=== PATIENT | male | born 1995 | race Caucasian/White ===

== ENCOUNTER 2021-05-04 02:07 | Emergency (ER) | payer BC, SELFPAY ==
[2021-05-04] VITALS (7 sets, daily range): BP systolic 125–145; BP diastolic 75–97; PULSE 94–140; RESP 16–22; TEMP 36.7–39.3; O2SAT 96–98; BMI 39.5
--- NOTE | 2021-05-04 02:23 | XR_ITS ---
PROCEDURE INFORMATION: Exam: XR Chest Exam date and time: 05/04/2021 2:23 AM Age: 26 years old Clinical indication: Cough; Additional info: Covid symptoms TECHNIQUE: Imaging protocol: XR of the chest. Views: 2 views. COMPARISON: No relevant prior studies available. FINDINGS: Lungs: Perceived hazy opacity in the peripheral right mid lung seen on the AP image, suspicious for pneumonia. This does not have a clear correlate on the lateral view, and artifact due to underpenetration is within the differential. Pleural spaces: No pleural effusion. No pneumothorax. Heart/Mediastinum: Normal heart size. Bones/joints: Unremarkable. IMPRESSION: Hazy peripheral right midlung opacity suspicious for pneumonia. Differential would include artifact due to underpenetration.
[2021-05-04 02:44] LABS: Coronavirus 19, PCR Not Detected (NotDetected); Influenza A, PCR Not Detected (NotDetected); Influenza B, PCR Not Detected (NotDetected)
[2021-05-04 03:02] LABS: Strep Scrn Group A (Rapid) Positive (Negative)
[2021-05-04 03:57] LABS: Basophils # 0.1 K/mm3 (0-0.2); Basophils % 0.3 % (0.1-2.0); Eosinophils # 0.1 K/mm3 (0.0-0.4); Eosinophils % 0.6 % (0.1-12.0); Hematocrit 42.9 % (42.0-52.0); Hemoglobin 14.2 g/dL (14.1-18.0); Lymphocytes # 1.2 K/mm3 (0.7-4.5); Lymphocytes % 6.6 % (10-50); Mean Corpuscular HGB Conc 33.2 g/dL (31.8-35.4); Mean Corpuscular Hemoglobin 29.2 pg (27.0-31.2); Mean Platelet Volume 7.7 fl (7.4-10.4); Monocytes # 0.6 K/mm3 (0.1-1.0); Monocytes % 3.5 % (1.7-9.3); Neutrophils # 15.8 K/mm3 (1.8-7.8); Platelet Count 249 K/mm3 (142-424); Red Blood Count 4.87 M/mm3 (4.60-6.20); Red Cell Distribution Width 13.4 % (11.5-17.5); White Blood Count 17.7 K/mm3 (4.8-10.8)
[2021-05-04 03:59] LABS: MANUAL DIFFERENTIAL MANUAL DIFFERENTIAL (MANUAL DIFF)
[2021-05-04 04:11] LABS: Alanine Aminotransferase 59 U/L (12-78); Albumin Level 4.1 g/dl (3.5-5.0); Albumin/Globulin Ratio 1.4 (1.1-1.8); Alkaline Phosphatase 60 U/L (38-126); Anion Gap 11.9 mEq/L (5-15); Aspartate Amino Transferase 32 U/L (17-59); Bilirubin,Total 1.5 mg/dl (0.2-1.3); Blood Urea Nitrogen 12 mg/dl (9-20); Carbon Dioxide 24 mmol/L (22.0-30.0); Chloride 105 mmol/L (98-107); Creatinine Clearance Estimated 235 mL/min (50-200); Estimated Glomerular Filt Rate 100 ml/min (>60); GFR (African American) 122 ML/MIN (>60); Globulin 2.9 g/dL (1.3-3.2); Glucose 125 mg/dl (74-100); Potassium 3.9 mmoL/L (3.5-5.1); Sodium 137 mmol/L (136-145)
[2021-05-04 04:16] LABS: C-Reactive Protein 65.1 mg/L (0-4)
[2021-05-04 04:34] LABS: Erythrocyte Sedimentation Rate 19 mm/hr (0-15)
--- NOTE | 2021-05-04 04:39 | HMH.EDURI ---
ED Disposition Clinical Impression: Strep pharyngitis, SIRS (systemic inflammatory response syndrome) Disposition: Home, Self-Care Condition on Discharge: Good Instructions: DI for Fever (Symptom) -- Adult Additional Instructions: fluids and change tooth brush Prescriptions: Cefdinir [Omnicef 300mg Capsule] 300 mg PO BID #14 cap Transmission Status: Pending to [id number] Referrals: Adam Norwood MD [Primary Care Provider] - - Critical Care Critical Care Time: No Attestation: On 05/04/21, the high probability of a clinically significant, sudden or life threatening deterioration of the following system(s) required my full and direct attention, intervention and personal management. The time I documented below is in addition to time spent performing reported procedures but includes the following listed in this critical care notation. Medical Decision Making - Medical Records Medical records reviewed: Yes: I reviewed the patient's medical records. - Hugo Inquiry Pt receiving controlled substance: No Vital Signs: 05/04/21 02:09 05/04/21 02:40 05/04/21 03:00 Temperature 102.8 F H Temperature Source Oral Pulse Rate 117 H 111 H Pulse Rate [Right Radial] 140 H Respiratory Rate 22 22 Blood Pressure 128/83 138/75 Blood Pressure [Right Arm] 145/97 H Blood Pressure Mean 94 Blood Pressure Mean [Right Arm] 113 Blood Pressure Source [Right Arm] Automatic Cuff Blood Pressure Position [Right Arm] Sitting 02 Sat by Pulse Oximetry 97 96 96 Oxygen Delivery Method Room Air Room Air Room Air 05/04/21 03:08 05/04/21 03:30 05/04/21 04:00 Temperature 99.9 F H Temperature Source Oral Pulse Rate 105 H 106 H Pulse Rate [Right Radial] Respiratory Rate Blood Pressure 132/75 125/80 Blood Pressure [Right Arm] Blood Pressure Mean Blood Pressure Mean [Right Arm] Blood Pressure Source [Right Arm] Blood Pressure Position [Right Arm] 02 Sat by Pulse Oximetry 96 96 Oxygen Delivery Method Room Air Room Air - Lab Data Lab results reviewed: Yes: I reviewed the patient's lab results. Lab Results 05/04/21 02:40: Group A Strep Rapid Positive A 05/04/21 02:40: SARS-CoV-2 (PCR) Not detected, Influenza A Untype (PCR) Not detected, Influenza Type B (PCR) Not detected 05/04/21 03:46: WBC 17.7 H, RBC 4.87, Hgb 14.2, Hct 42.9, MCV 88.0, MCH 29.2, MCHC 33.2, RDW 13.4, Plt Count 249, MPV 7.7, Neut % (Auto) 89.0 H, Lymph % (Auto) 6.6 L, Coffey % (Auto) 3.5, Eos % (Auto) 0.6, Baso % (Auto) 0.3, Neut # (Auto) 15.8 H, Lymph # (Auto) 1.2, Coffey # (Auto) 0.6, Eos # (Auto) 0.1, Baso # (Auto) 0.1, ESR 19 H 05/04/21 03:46: Sodium 137, Potassium 3.9, Chloride 105, Carbon Dioxide 24, Anion Gap 11.9, BUN 12, Creatinine 0.90, Estimated Creat Clear 235, Estimated GFR 100, Est GFR ( Amer) 122, Glucose 125 H, Calcium 9.0, Total Bilirubin 1.5 H, AST 32, ALT 59, Alkaline Phosphatase 60, C-Reactive Protein 65.1 H, Total Protein 7.0, Albumin 4.1, Globulin 2.9, Albumin/Globulin Ratio 1.4, Procalcitonin 0.110 Result diagrams: 05/04/21 03:46 05/04/21 03:46 Orders (Tests/Meds): ED MEDICATIONS Generic Name Dose Route Start Last Admin Trade Name Freq PRN Reason Stop Dose Admin Sodium Chloride 1,000 mls @ 999 mls/hr 05/04/21 02:30 05/04/21 02:29 Sod Chlor 0.9% 1000ml Bag IV 05/04/21 03:30 999 mls/hr .Q1H1M JOB Administration Sodium Chloride 1,000 mls @ 999 mls/hr 05/04/21 04:00 05/04/21 04:00 Sod Chlor 0.9% 1000ml Bag IV 05/04/21 05:00 999 mls/hr .Q1H1M JOB Administration Ceftriaxone Sodium 1 gm/ 50 mls @ 100 mls/hr 05/04/21 04:30 05/04/21 04:26 Sodium Chloride IV 05/18/21 04:29 100 mls/hr Q24H JOB Administration Discontinued Medications Generic Name Dose Route Start Last Admin Trade Name Freq PRN Reason Stop Dose Admin Acetaminophen 1,000 mg 05/04/21 02:24 05/04/21 02:29 Acetaminophen 500mg Tab PO 05/04/21 02:25 1,000 mg ONCE ONE
[2021-05-04 04:54] LABS: Lymphocytes % 10 % (10-50); Monocytes % 1 % (2-9); Neutrophils % 88 % (42-76); Platelet Estimate Normal; RBC Morphology Normal; Total Cells Counted 100
== END 2021-05-04 04:50 | disposition home or self-care (01) ==
PROVIDERS: Emergency Provider Emergency Medicine; PCP Family Medicine
DX: J02.0 Streptococcal pharyngitis (principal); R65.10 Systemic inflammatory response syndrome (SIRS) of non-infectious origin without acute organ dysfunction
CPT/HCPCS: 71046; 80053; 84145; 85007; 85025; 85651; 86140; 87430; 96365; 96375; 99283; C9803; U0003; U0005

== ENCOUNTER → 2021-07-10 11:59 | Outpatient (CLI) | payer BC, SELFPAY | PROVIDERS: PCP Family Medicine; Visit Provider Nurse Practitioner | DX: U07.1 COVID-19 (principal) | CPT/HCPCS: C9803; U0003; U0005 ==

== ENCOUNTER → 2022-04-17 13:56 | Outpatient (CLI) | payer BC, SELFPAY ==
[2022-04-17 15:10] LABS: Basophils # 0.1 K/mm3 (0-0.2); Basophils % 1.2 % (0.1-2.0); Eosinophils # 0.1 K/mm3 (0.0-0.4); Eosinophils % 0.9 % (0.1-12.0); Hematocrit 46.7 % (42.0-52.0); Hemoglobin 15.7 g/dL (14.1-18.0); Lymphocytes # 2.8 K/mm3 (0.7-4.5); Lymphocytes % 26.7 % (10-50); Mean Corpuscular HGB Conc 33.7 g/dL (31.8-35.4); Mean Corpuscular Hemoglobin 29.1 pg (27.0-31.2); Mean Corpuscular Volume 86.3 fl (80-94); Mean Platelet Volume 7.8 fl (7.4-10.4); Monocytes # 0.5 K/mm3 (0.1-1.0); Monocytes % 4.7 % (1.7-9.3); Neutrophils # 6.9 K/mm3 (1.8-7.8); Neutrophils % 66.6 % (37.0-80.0); Platelet Count 315 K/mm3 (142-424); Red Blood Count 5.41 M/mm3 (4.60-6.20); Red Cell Distribution Width 13.2 % (11.5-17.5); White Blood Count 10.4 K/mm3 (4.8-10.8)
[2022-04-17 15:47] LABS: Anion Gap 16.4 mEq/L (5-15); Blood Urea Nitrogen 14 mg/dl (9-20); Calcium 9.5 mg/dl (8.4-10.2); Carbon Dioxide 29 mmol/L (22.0-30.0); Chloride 100 mmol/L (98-107); Estimated Glomerular Filt Rate 88 ml/min (>60); GFR (African American) 107 ML/MIN (>60); Glucose 96 mg/dl (74-100); Potassium 4.4 mmoL/L (3.5-5.1); Sodium 141 mmol/L (136-145)
== END ==
PROVIDERS: PCP Family Medicine; Visit Provider Surgery
DX: L72.9 Follicular cyst of the skin and subcutaneous tissue, unspecified (principal)
CPT/HCPCS: 36415; 80048; 85025

== ENCOUNTER 2022-05-07 07:07 | Day surgery (SDC) | payer BC, SELFPAY ==
[2022-05-03 13:00] VITALS: BMI 39.5
[2022-05-07 07:22] VITALS: BP 158/90; PULSE 89; RESP 18; TEMP 36.6; O2SAT 98
--- NOTE | 2022-05-07 09:21 | SUR.PREOP ---
Procedure to be rescheduled due to Dr Yang having an emergent, add-on case delaying procedure time.
== END 2022-05-07 09:30 ==
PROVIDERS: PCP Family Medicine; Visit Provider Surgery
PROC: (CPT 11423; principal; 2022-05-07 09:00)
DX: Z53.8 Procedure and treatment not carried out for other reasons (principal); L72.11 Pilar cyst
CPT/HCPCS: 11423; 96374

== ENCOUNTER 2022-10-08 18:50 | Emergency (ER) | payer BC, SELFPAY ==
--- NOTE | 2022-10-08 18:54 | EXP.UTC ---
Discharge Plan Disposition Patient Disposition: Home, Self-Care Condition: Good Prescriptions Prescriptions: New Chloraseptic Max Sore Throat 1.5-33 % spray,non-aerosol 1 spray mucous membrane Q4H PRN (Reason: sore throat) Qty: 118 0RF Rx Instructions: leave on area for 15 seconds then spit out Referrals Follow up/Referrals: Pati Goyal MD [Primary Care Provider] - See instructions Activity Restrictions/Add. Instructions Additional Instructions/Restrictions: Drink plenty of fluids. Take tylenol for pain. Use the chlorseptic spray as directed for throat discomfort. Follow up with your regular doctor. GO TO THE ER FOR ANY WORSENING SYMPTOMS Clinical Impressions Clinical Impression: Acute sore throat Instructions Patient Instructions: Sore Throat Discharge ED Provider: Sang Duran [facility] General Stated complaint: Sore throat Time Seen by Provider: 10/08/22 19:13 Related Data Previous Rx's Medication Instructions Recorded phenol 1.5 %-glycerin 33 % mucosal 1 spray mucous membrane Q4H PRN 10/08/22 spray (Chloraseptic Max Sore sore throat #118 mL Throat) Allergies Allergy/AdvReac Type Severity Reaction Status Date / Time No Known Allergies Allergy Verified 10/08/22 19:10 [facility] Disclaimer: The information contained in this section may have been updated after the patient was seen, as this information can be updated by other users. Medical History History of COVID-19 Surgical History [place] teeth extracted Family History Father Family history of hypertension Family history of hyperlipidemia Social History Smoking Status: Never smoker alcohol intake: never current occupational status: employed Travel in the last 8 weeks: None do you feel safe at home: Yes victim of physical abuse: No victim of emotional abuse: No victim of sexual abuse: No would you like helpful sources: No ROS Obtained: Yes All systems reviewed & no additional complaints except as documented Constitutional Constitutional: Reports chills and Reports fever(s) Eyes Eyes: Denies eye discharge ENT Ears, Nose, Mouth, and Throat: Reports as per HPI Cardiovascular Cardiovascular: Denies chest pain Respiratory Respiratory: Denies chest congestion and Reports cough Gastrointestinal Gastrointestingal: Reports nausea; Denies abdominal pain, constipation, cramping, diarrhea or vomiting Musculoskeletal Musculoskeletal: Denies arthralgias Integumentary/Breasts Skin/Breast: Denies rash Neurologic Neurologic: Denies paresthesias Physical Exam General General appearance: alert and in no apparent distress Head Head exam: atraumatic, normocephalic and normal inspection Eye Eye exam: Present normal appearance, PERRL and EOMI ENT ENT exam: Present mucous membranes moist and normal external ear exam Expanded ENT Exam TM/Canal exam: Bilateral TM: erythema and bulging Nose exam: Absent sinus tenderness Mouth exam: Present normal external inspection; Absent drooling Teeth exam: Present normal inspection Throat exam: Present tonsillar erythema, tonsillomegaly and tonsillar exudate Neck Neck exam: Present normal inspection, full ROM and trachea midline; Absent tenderness, meningismus or lymphadenopathy Chest Chest inspection: Present normal inspection and symmetric chest wall rise; Absent tenderness Respiratory Respiratory exam: Present normal lung sounds bilaterally; Absent respiratory distress, wheezes or stridor Cardiovascular Cardiovascular exam: Present regular rate and normal rhythm; Absent systolic murmur or diastolic murmur Abdominal Exam Abdominal exam: Present soft and normal bowel sounds; Absent distention, tenderness, guarding, rebound or rigidity Extremitie
[2022-10-08 19:00] VITALS: BP 187/90; PULSE 108; RESP 20; TEMP 37.6; O2SAT 97; BMI 39.5
[2022-10-08 19:10] LABS: UTC Strep Screen (Rapid) Negative (Negative)
[2022-10-08 19:31] VITALS: BP 187/90; PULSE 108; RESP 20; TEMP 37.6; O2SAT 97
== END 2022-10-08 19:31 | disposition home or self-care (01) ==
PROVIDERS: Emergency Provider Nurse Practitioner Family; PCP Family Medicine
DX: J02.9 Acute pharyngitis, unspecified (principal)
CPT/HCPCS: 87880; 99212; 99214; G0463

== ENCOUNTER → 2023-05-22 13:02 | Outpatient (CLI) | payer BC, SELFPAY ==
[2023-05-22 18:32] LABS: Adenovirus,PCR Not Detected (NotDetected); Coronavirus 19, PCR Not Detected (NotDetected); Coronavirus 229E Not Detected (NotDetected); Coronavirus NL63 Not Detected (NotDetected); Coronavirus OC43 Not Detected (NotDetected); Coronovirus HKU1,PCR Not Detected (NotDetected); Human Metapneumovirus Not Detected (NotDetected); Influenza A, PCR Not Detected (NotDetected); Influenza AH1, 2009 Not Detected (NotDetected); Influenza AH1, PCR Not Detected (NotDetected); Influenza AH3,PCR Not Detected (NotDetected); Influenza B, PCR Not Detected (NotDetected); Parainfluenza 1, PCR Not Detected (NotDetected); Parainfluenza 2, PCR Not Detected (NotDetected); Parainfluenza 3, PCR Not Detected (NotDetected); Parainfluenza 4, PCR Not Detected (NotDetected); Respiratory Syncytial Virus Not Detected (NotDetected); Rhinovirus/Enterovirus Not Detected (NotDetected)
== END ==
PROVIDERS: PCP Nurse Practitioner Family; Visit Provider Nurse Practitioner Family
DX: J02.9 Acute pharyngitis, unspecified (principal); R11.2 Nausea with vomiting, unspecified; R19.7 Diarrhea, unspecified; R42 Dizziness and giddiness; R50.9 Fever, unspecified
CPT/HCPCS: 87070; 87581; 87632; 87635; 87798

== ENCOUNTER 2023-06-03 16:47 | Emergency (ER) | payer BC, SELFPAY ==
[2023-06-03 17:20] VITALS: PULSE 103; RESP 18; TEMP 36.9; O2SAT 98; BMI 41.6
--- NOTE | 2023-06-03 17:26 | EXP.UTC ---
Discharge Plan Disposition Patient Disposition: Home, Self-Care Condition: Good Prescriptions Prescriptions: New ondansetron 4 mg Tablet,Disintegrating 4 mg PO Q8H PRN (Reason: Nausea) Qty: 12 0RF Referrals Follow up/Referrals: Pati Goyal MD [Primary Care Provider] - See instructions Activity Restrictions/Add. Instructions Additional Instructions/Restrictions: Drink plenty of fluids. Take tylenol or ibuprofen for pain or fever. Take the zofran (ondesetron) as directed for nausea/vomiting. Follow up with your regular doctor. GO TO THE ER FOR ANY WORSENING SYMPTOMS Clinical Impressions Clinical Impression: Gastroenteritis, Acute viral syndrome Stand Alone Forms Stand Alone Forms: Work/School Release Instructions Patient Instructions: DI for Viral Gastroenteritis -- Adult, Ondansetron Discharge ED Provider: Sang Duran [facility] General Stated complaint: vomiting diarrhea abd cramps chills Time Seen by Provider: 06/03/23 17:26 History of Present Illness Provider Complaint: He states that since last night he has had n/v/d. He has not vomited since this morning. He continues to have frequent diarrhea. Related Data Previous Rx's Medication Instructions Recorded ondansetron 4 mg disintegrating 4 mg PO Q8H PRN Nausea #12 tabs 06/03/23 tablet Allergies Allergy/AdvReac Type Severity Reaction Status Date / Time No Known Allergies Allergy Verified 06/03/23 17:32 [facility] Disclaimer: The information contained in this section may have been updated after the patient was seen, as this information can be updated by other users. Medical History (Updated 06/03/23 @ 18:05 by Sang Duran APRN) Acute sore throat History of COVID-19 Otitis media Pilar cyst of scalp SIRS (systemic inflammatory response syndrome) Strep pharyngitis Surgical History [place] teeth extracted Family History Father Family history of hypertension Family history of hyperlipidemia Social History Smoking Status: Never smoker alcohol intake: never current occupational status: employed Travel in the last 8 weeks: None do you feel safe at home: Yes victim of physical abuse: No victim of emotional abuse: No victim of sexual abuse: No would you like helpful sources: No ROS Obtained: Yes All systems reviewed & no additional complaints except as documented Constitutional Constitutional: Denies chills, Denies fever(s) and Reports poor appetite ENT Ears, Nose, Mouth, and Throat: Denies dizziness and Denies sore throat Cardiovascular Cardiovascular: Denies dyspnea Respiratory Respiratory: Denies chest congestion, Denies cough and Denies dyspnea Gastrointestinal Gastrointestingal: Reports as per HPI, cramping, diarrhea, nausea and vomiting; Denies abdominal pain Musculoskeletal Musculoskeletal: Denies arthralgias Integumentary/Breasts Skin/Breast: Denies rash Neurologic Neurologic: Denies dizziness Physical Exam General General appearance: alert and in no apparent distress Head Head exam: atraumatic and normocephalic Eye Eye exam: Present normal appearance, PERRL and EOMI ENT ENT exam: Present normal exam, normal oropharynx, mucous membranes moist, TM's normal bilaterally and normal external ear exam Neck Neck exam: Present normal inspection, full ROM and trachea midline; Absent tenderness, meningismus or lymphadenopathy Chest Chest inspection: Present normal inspection and symmetric chest wall rise; Absent tenderness, rash or abscess Respiratory Respiratory exam: Present normal lung sounds bilaterally; Absent respiratory distress, wheezes or stridor Cardiovascular Cardiovascular exam: Present regular rate and normal rhythm; Absent irregular rhythm, systolic murmur, diastolic murmur or JVD Abdominal Exam Abdominal exam: Presen
[2023-06-03 18:32] VITALS: BP 0/0; PULSE 103; RESP 18; TEMP 36.9; O2SAT 98
== END 2023-06-03 18:31 | disposition home or self-care (01) ==
PROVIDERS: Emergency Provider Nurse Practitioner Family; PCP Family Medicine
DX: A08.4 Viral intestinal infection, unspecified (principal); R11.2 Nausea with vomiting, unspecified; R10.819 Abdominal tenderness, unspecified site
CPT/HCPCS: 87635; 99212; 99214; G0463